=== PATIENT | female | born 1985 | race African-American/Black ===

== ENCOUNTER 2018-01-09 18:52 | Emergency (ER) | payer BC, OTHER ==
[2018-01-09 20:00] LABS: Bilirubin Negative (Negative); Blood, Urine Trace (Negative); Clarity CLOUDY (Clear); Glucose, Urine (Dipstick) Negative (Negative); Leukocyte Negative (Negative); Nitrite Negative (Negative); Protein, Urine (Dipstick) Negative (Neg-Trace); Specific Gravity, Urine 1.021 (1.002-1.036)
[2018-01-09 20:02] LABS: Bacteria/HPF Rare-Few HPF (None Seen); Hyaline Casts/LPF 0-3 HYALINE CAST LPF (0-3 Hyaline); Pathc Cast-AUWi Flag 0.13 (0-2.49); RBC/HPF 0-3 HPF (0-3); WBC/HPF 0-3 HPF (0-3)
[2018-01-09 20:03] LABS: Pregnancy Test - Urine (BHCG) Negative (Negative); Pregu Control Background? CLEAR/WHITE (CLR/WHITE); Pregu Control Bar Appear? YES (CONTROL BAR); Specific Gravity 1.021 (1.002-1.036)
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
[2018-01-09] MEDS ORDERED: Ketorolac Tromethamine 60 MG/2 ML VIAL ONE (20:30)
== END 2018-01-09 20:51 | disposition home or self-care (01) ==
LOC: ERS 18:52
DX: S16.1XXA Strain of muscle, fascia and tendon at neck level, initial encounter (principal); V43.62XA Car passenger injured in collision with other type car in traffic accident, initial encounter
CPT/HCPCS: 72125; 81003; 81015; 81025; 96372; J1885

== ENCOUNTER 2018-02-02 05:48 | Emergency (ER) | payer BC ==
[2018-02-02 07:09] LABS: Bilirubin Negative (Negative); Blood, Urine Negative (Negative); Clarity CLEAR (Clear); Glucose, Urine (Dipstick) Negative (Negative); Leukocyte Negative (Negative); Nitrite Negative (Negative); Protein, Urine (Dipstick) Negative (Neg-Trace); Specific Gravity, Urine 1.012 (1.002-1.036); Urobilinogen 0.2 mg/dL (0.2-1.0)
[2018-02-02] MEDS ORDERED: Ibuprofen 800 MG TAB ONE (07:21)
== END 2018-02-02 07:52 | disposition home or self-care (01) ==
LOC: ERS 05:48
DX: B34.9 Viral infection, unspecified (principal)
CPT/HCPCS: 81003; 99283

== ENCOUNTER 2021-02-01 04:40 | Emergency (ER) | payer BC, SELFPAY ==
[2021-02-01] MEDS ORDERED: Lorazepam 2 MG/ML VIAL ONE (04:51)
== END 2021-02-01 06:15 | disposition home or self-care (01) ==
LOC: ERS 04:40
DX: R00.2 Palpitations (principal)
CPT/HCPCS: 93005; 96374; J2060

== ENCOUNTER 2021-03-01 08:30 | Emergency (ER) | payer SELFPAY ==
[2021-03-01 09:17] LABS: #Basophils 0.1 thou/uL (0.0-0.2); #Eosinphils 0.2 thou/uL (0.0-0.7); #Lymphocytes 1.4 thou/uL (1.20-3.40); #Monocytes 0.4 thou/uL (0.11-0.59); #Neutrophils 1.5 thou/uL (1.40-6.50); %Basophils 2.4 % (0.0-1.0); %Eosinophils 4.8 % (0.0-10.0); %Monocytes 10.9 % (0.0-10.0); %Neutrophils 41.9 % (42.0-75.0); Hemoglobin 12.6 g/dL (12.0-16.0); Mean Corpuscular Hemoglobin 32.6 pg (27.0-31.0); Mean Corpuscular Volume 95.8 fL (78.0-98.0); Platelet Count 281 thou/uL (130-400); RBC Distribution Width 12.3 % (11.5-14.5); Red Blood Cell (RBC) Count 3.87 mill/uL (4.20-5.40); White Blood Cell (WBC) Count 3.5 thou/uL (4.8-10.8)
[2021-03-01 09:38] LABS: ALT (SGPT) 17 U/L (8-55); AST (SGOT) 20 U/L (5-34); Albumin 3.7 g/dL (3.5-5.0); Alkaline Phosphatase 42 U/L (40-110); Anion Gap 12 mmol/L (10-20); BUN (Urea Nitrogen) 6 mg/dL (7.0-18.7); Bilirubin, Total 1.1 mg/dL (0.2-1.2); Calc. Creatinine Clearance 0 mL/min (70-130); Carbon Dioxide 24 mmol/L (22-29); Chloride 105 mmol/L (98-107); Globulin 4.1 g/dL (2.4-3.5); Glucose 111 mg/dL (70-105); Potassium 3.6 mmol/L (3.5-5.1); Protein, Total 7.8 g/dL (6.0-8.3); Sodium 137 mmol/L (136-145)
[2021-03-01] MEDS ORDERED: Lorazepam 2 MG/ML VIAL ONE (09:42)
[2021-03-01 10:17] LABS: Bilirubin Negative (Negative); Blood, Urine Negative (Negative); Clarity Clear (Clear); Glucose, Urine (Dipstick) Normal (Negative); Ketone, Urine Negative (Negative); Leukocyte Negative Leu/uL (Negative); Nitrite Negative (Negative); Protein, Urine (Dipstick) Negative (Neg-Trace); Specific Gravity, Urine 1.006 (1.002-1.036); Urobilinogen Normal mg/dL (Less than 2)
[2021-03-01 10:18] LABS: BHCG - Serum Negative (NEGATIVE); Pregs Control Background? CLEAR/WHITE (CLR/WHITE); Pregs Control Bar Appear? YES (CONTROL BAR)
== END 2021-03-01 10:29 | disposition home or self-care (01) ==
LOC: ERS 08:30
DX: F41.9 Anxiety disorder, unspecified (principal)
CPT/HCPCS: 36415; 71045; 80053; 81003; 83690; 84443; 84703; 85025; 85379; 93005; 96372; J2060

== ENCOUNTER 2021-03-21 00:21 | Emergency (ER) | payer SELFPAY ==
[2021-03-21 00:53] LABS: #Basophils 0.1 thou/uL (0.0-0.2); #Eosinphils 0.2 thou/uL (0.0-0.7); #Lymphocytes 2.2 thou/uL (1.20-3.40); #Monocytes 0.5 thou/uL (0.11-0.59); #Neutrophils 2.1 thou/uL (1.40-6.50); %Basophils 2.2 % (0.0-1.0); %Eosinophils 3.2 % (0.0-10.0); %Lymphocytes 43.6 % (21.0-51.0); Mean Corpuscular HGB CONC 34.6 g/dL (32.0-36.0); Mean Corpuscular Hemoglobin 32.9 pg (27.0-31.0); Mean Corpuscular Volume 95.2 fL (78.0-98.0); Mean Platelet Volume 7.2 fL (7.4-10.4); Platelet Count 303 thou/uL (130-400); Red Blood Cell (RBC) Count 3.96 mill/uL (4.20-5.40)
[2021-03-21] MEDS ORDERED: Acetaminophen 500 MG TAB ONE (00:57)
[2021-03-21] MEDS ORDERED: hydrOXYzine 25 MG TAB ONE (00:57)
[2021-03-21 01:08] LABS: ALT (SGPT) 13 U/L (8-55); AST (SGOT) 14 U/L (5-34); Albumin 3.7 g/dL (3.5-5.0); Alkaline Phosphatase 40 U/L (40-110); Anion Gap 14 mmol/L (10-20); BUN (Urea Nitrogen) 5 mg/dL (7.0-18.7); Bilirubin, Total 0.9 mg/dL (0.2-1.2); Calc. Creatinine Clearance 0 mL/min (70-130); Calcium 9.3 mg/dL (7.8-10.44); Carbon Dioxide 24 mmol/L (22-29); Chloride 102 mmol/L (98-107); Globulin 4.1 g/dL (2.4-3.5); Glucose 106 mg/dL (70-105); Magnesium 1.9 mg/dL (1.6-2.6); Potassium 3.1 mmol/L (3.5-5.1); Protein, Total 7.8 g/dL (6.0-8.3); Sodium 137 mmol/L (136-145)
[2021-03-21] MEDS ORDERED: Lorazepam 2 MG/ML VIAL ONE (01:29)
[2021-03-21 01:42] LABS: BHCG - Serum Negative (NEGATIVE); Pregs Control Background? CLEAR/WHITE (CLR/WHITE); Pregs Control Bar Appear? YES (CONTROL BAR)
== END 2021-03-21 01:55 | disposition home or self-care (01) ==
LOC: ERS 00:21
DX: R07.89 Other chest pain (principal); F41.9 Anxiety disorder, unspecified
CPT/HCPCS: 36415; 71045; 80053; 83735; 84443; 84484; 84703; 85025; 93005; 96374; J2060

== ENCOUNTER 2021-03-21 16:08 | Emergency (ER) | payer SELFPAY ==
[2021-03-21] MEDS ORDERED: Lorazepam 2 MG/ML VIAL ONE (18:22)
[2021-03-21 19:02] LABS: #Eosinphils 0.1 thou/uL (0.0-0.7); #Lymphocytes 1.9 thou/uL (1.20-3.40); #Monocytes 0.4 thou/uL (0.11-0.59); #Neutrophils 2.5 thou/uL (1.40-6.50); %Basophils 0.7 % (0.0-1.0); %Lymphocytes 39.1 % (21.0-51.0); %Monocytes 7.3 % (0.0-10.0); Hemoglobin 13.8 g/dL (12.0-16.0); Mean Corpuscular HGB CONC 33.8 g/dL (32.0-36.0); Mean Corpuscular Hemoglobin 32.4 pg (27.0-31.0); Mean Corpuscular Volume 95.9 fL (78.0-98.0); Mean Platelet Volume 7.3 fL (7.4-10.4); Platelet Count 308 thou/uL (130-400); RBC Distribution Width 12.1 % (11.5-14.5); Red Blood Cell (RBC) Count 4.25 mill/uL (4.20-5.40); White Blood Cell (WBC) Count 4.9 thou/uL (4.8-10.8)
[2021-03-21 19:31] LABS: ALT (SGPT) 16 U/L (8-55); AST (SGOT) 20 U/L (5-34); Albumin 4.1 g/dL (3.5-5.0); Alkaline Phosphatase 44 U/L (40-110); Anion Gap 15 mmol/L (10-20); BUN (Urea Nitrogen) 4 mg/dL (7.0-18.7); Calc. Creatinine Clearance 0 mL/min (70-130); Calcium 9.5 mg/dL (7.8-10.44); Carbon Dioxide 24 mmol/L (22-29); Chloride 103 mmol/L (98-107); Globulin 4.8 g/dL (2.4-3.5); Glucose 83 mg/dL (70-105); Potassium 3.4 mmol/L (3.5-5.1); Protein, Total 8.9 g/dL (6.0-8.3); Sodium 139 mmol/L (136-145)
== END 2021-03-21 19:40 | disposition home or self-care (01) ==
LOC: ERS 16:08
DX: F41.9 Anxiety disorder, unspecified (principal); E28.2 Polycystic ovarian syndrome
CPT/HCPCS: 36415; 71045; 84443; 85379; 93005; 96374; J2060

== ENCOUNTER 2021-04-03 15:39 | Emergency (ER) | payer SELFPAY ==
[2021-04-03 17:29] LABS: #Basophils 0.1 thou/uL (0.0-0.2); #Eosinphils 0.1 thou/uL (0.0-0.7); #Lymphocytes 1.6 thou/uL (1.20-3.40); #Monocytes 0.5 thou/uL (0.11-0.59); #Neutrophils 2.2 thou/uL (1.40-6.50); %Basophils 1.4 % (0.0-1.0); %Eosinophils 2.9 % (0.0-10.0); %Lymphocytes 36.3 % (21.0-51.0); %Monocytes 10.1 % (0.0-10.0); %Neutrophils 49.3 % (42.0-75.0); Hemoglobin 12.6 g/dL (12.0-16.0); Mean Corpuscular HGB CONC 32.7 g/dL (32.0-36.0); Mean Corpuscular Hemoglobin 31.1 pg (27.0-31.0); Mean Corpuscular Volume 95.1 fL (78.0-98.0); Mean Platelet Volume 7.5 fL (7.4-10.4); Platelet Count 293 thou/uL (130-400); RBC Distribution Width 12.1 % (11.5-14.5); Red Blood Cell (RBC) Count 4.05 mill/uL (4.20-5.40); White Blood Cell (WBC) Count 4.4 thou/uL (4.8-10.8)
[2021-04-03] MEDS ORDERED: Lorazepam 2 MG/ML VIAL ONE (17:47)
[2021-04-03 17:56] LABS: ALT (SGPT) 16 U/L (8-55); AST (SGOT) 16 U/L (5-34); Albumin 3.8 g/dL (3.5-5.0); Alkaline Phosphatase 44 U/L (40-110); Anion Gap 9 mmol/L (10-20); BUN (Urea Nitrogen) 5 mg/dL (7.0-18.7); Bilirubin, Total 0.8 mg/dL (0.2-1.2); Calc. Creatinine Clearance 0 mL/min (70-130); Calcium 9.7 mg/dL (7.8-10.44); Carbon Dioxide 28 mmol/L (22-29); Chloride 105 mmol/L (98-107); Globulin 3.8 g/dL (2.4-3.5); Glucose 108 mg/dL (70-105); Potassium 4.2 mmol/L (3.5-5.1); Protein, Total 7.6 g/dL (6.0-8.3); Sodium 138 mmol/L (136-145)
== END 2021-04-03 20:00 | disposition home or self-care (01) ==
LOC: ERS 15:39
DX: F41.9 Anxiety disorder, unspecified (principal); R07.89 Other chest pain; R29.700 NIHSS score 0; E28.2 Polycystic ovarian syndrome; R73.03 Prediabetes; Z79.899 Other long term (current) drug therapy
CPT/HCPCS: 36415; 71045; 80053; 84484; 85025; 93005; 96372; J2060

== ENCOUNTER 2021-04-05 01:54 | Emergency (ER) | payer SELFPAY ==
[2021-04-05] MEDS ORDERED: Lorazepam 2 MG/ML VIAL ONE (02:54)
== END 2021-04-05 04:20 | disposition home or self-care (01) ==
LOC: ERS 01:54
DX: F41.0 Panic disorder [episodic paroxysmal anxiety] (principal); Z79.899 Other long term (current) drug therapy
CPT/HCPCS: 96372; 99283; J2060

== ENCOUNTER 2021-05-05 03:03 | Emergency (ER) | payer SELFPAY | END 2021-05-05 04:49 | disposition home or self-care (01) | LOC: ERS 03:03 | DX: F43.0 Acute stress reaction (principal); R00.2 Palpitations | CPT/HCPCS: 93005 ==

== ENCOUNTER 2021-05-11 05:33 | Emergency (ER) | payer SELFPAY ==
[2021-05-11] MEDS ORDERED: hydrOXYzine 25 MG TAB ONE (05:48)
== END 2021-05-11 06:45 | disposition home or self-care (01) ==
LOC: ERS 05:33
DX: F41.9 Anxiety disorder, unspecified (principal); R73.03 Prediabetes; E28.2 Polycystic ovarian syndrome; Z79.899 Other long term (current) drug therapy
CPT/HCPCS: 93005